=== PATIENT | male | born 1970 | race Caucasian/White ===

== ENCOUNTER 2019-03-03 14:43 | Emergency (ER) | payer OTHER, SELFPAY | END 2019-03-03 16:00 | disposition home or self-care (01) | LOC: MADERS 14:43 | DX: S09.90XA Unspecified injury of head, initial encounter (principal); W22.8XXA Striking against or struck by other objects, initial encounter | CPT/HCPCS: 99283 ==

== ENCOUNTER 2019-11-11 12:04 | Emergency (ER) | payer SELFPAY ==
[2019-11-11] MEDS ORDERED: Ibuprofen 600 MG TAB ONE (12:24)
--- NOTE | 2019-11-11 12:33 | RAD ---
Radiograph right ankle 3 views: HISTORY: 49-year-old male with acute traumatic ankle pain FINDINGS: There is a predominantly transversely oriented fracture of the upper aspect of the medial malleolus w ith mild peripheral displacement. The fracture reaches the superomedial corner of the ankle mortise joint space without step-off there. Ankle mortise is congruent. No other fracture IMPRESSION: Acute, traumatic, mildly displaced fracture of upper aspect of left medial malleolus.
== END 2019-11-11 13:05 | disposition home or self-care (01) ==
LOC: MADERS 12:04
DX: S82.51XA Displaced fracture of medial malleolus of right tibia, initial encounter for closed fracture (principal); W55.29XA Other contact with cow, initial encounter
CPT/HCPCS: 29515